=== PATIENT | male | born 2000 | race Caucasian/White ===

== ENCOUNTER 2022-02-26 13:29 | Emergency (ER) | payer OTHER, SELFPAY ==
[2022-02-26 13:36] VITALS: BP 143/105; PULSE 110; RESP 18; TEMP 36.6; O2SAT 99
--- NOTE | 2022-02-26 13:36 | DI.RAD.S_ITS ---
PROCEDURE: XR WRIST RT MIN 3V INDICATIONS: fall TECHNIQUE: Four views of the wrist were acquired. COMPARISON: None. FINDINGS: Bones: Minimally displaced transverse fracture of the distal ulnar shaft. Soft tissues: No suspicious soft tissue calcifications. IMPRESSION: Minimally displaced distal ulnar shaft fracture. This injury is sometimes associated with elbow dislocations. Correlate clinically and consider dedicated elbow views if necessary. Dictated by: Lavell Tafoya M.D. on 02/26/2022 at 14:05 Approved by: Lavell Tafoya M.D. on 02/26/2022 at 14:07
--- NOTE | 2022-02-26 14:00 | ED.GENADULT ---
HPI - General Adult General Chief complaint: Extremity Injury, Upper Stated complaint: tripped at work and might've broken arm Time Seen by Provider: 02/26/22 13:52 Source: patient Mode of arrival: Ambulatory History of Present Illness HPI narrative: 21-year-old left-hand dominant male here with evaluation of a right forearm/wrist injury. He states that shortly prior to arrival he was at work where he tripped and landed forward and landed on his left wrist. Has pain on the outside of his wrist/forearm. No other injuries from the event. No shoulder or elbow discomfort. No interventions prior to arrival. Related Data Home Medications Medication Instructions Recorded Confirmed No Known Home Medications 02/26/22 02/26/22 Allergies Allergy/AdvReac Type Severity Reaction Status Date / Time No Known Drug Allergies Allergy Verified 02/26/22 13:40 Review of Systems Constitutional Constitutional: Reports system reviewed and no additional complaints, except as documented Musculoskeletal Musculoskeletal: Reports system reviewed and no additional complaints, except as documented Integumentary/Breasts Skin/Breast: Reports system reviewed and no additional complaints, except as documented Neurologic Neurologic: Reports system reviewed and no additional complaints, except as documented Hematologic/Lymphatic On Anticoagulants: No Patient History Medical History Healthy adult Social History Smoking Status: Never smoker Smoking Status: Never smoker alcohol intake frequency: a few times a month Substance Use Type: marijuana Exam Initial Vital Signs Initial Vital Signs: Vital Signs Temperature 98 F 02/26/22 13:36 Pulse Rate 110 H 02/26/22 13:36 Respiratory Rate 18 02/26/22 13:36 Blood Pressure 143/105 H 02/26/22 13:36 Pulse Oximetry 99 02/26/22 13:36 Oxygen Delivery Method 02/26/22 13:36 Const General: cooperative and comfortable HENMT Head: normal to inspection Cardio Pulses: radial pulses present on the right Skin General: no rashes or lesions noted Neuro Sensory Exam: no sensory deficits noted Extrem Other: Right shoulder and right elbow unremarkable. Tenderness along the distal ulna on the right just proximal to the ulnar styloid. His hand and fingers on the right are unremarkable. Psych Appearance: grossly normal and well kempt Procedures Orthopedic Splinting/Casting Injury #1: Side: right Upper Extremity Injury Location: forearm Upper Extremity Immobilizer: sugar tong splint Other Orthopedic Equipment: other (Sling) Post splinting neuro exam: intact Post splinting vascular exam: intact Placed by: Nursing Course Orders Ordered: ED Orders 02/26/22 13:36 XR wrist RT min 3V Stat 02/26/22 14:13 XR elbow RT min 3V Stat Vital Signs Vital signs: Vital Signs - 8 hr 02/26/22 13:36 Temperature 98 F Pulse Rate 110 H Respiratory Rate 18 Blood Pressure 143/105 H Pulse Oximetry 99 Oxygen Delivery Method Room Air Medical Decision Making Imaging Data Extremity x-ray #1: Radiologist's Impression: [address] [address] XRay Report Signed Patient: Jake Acevedo MR#: [id number] : 2000 Acct:[id number] Age/Sex: 21 / M Date of Service: 02/26/22 Loc: ED Accession Number: [id number] ?? Procedure: XR wrist RT min 3V Ordering Provider: Prosper Ivey D.O. PROCEDURE:? XR WRIST RT MIN 3V ? INDICATIONS: fall ? TECHNIQUE:? Four views of the wrist were acquired.? ? COMPARISON:? None. ? FINDINGS:? ? Bones:? Minimally displaced transverse fracture of the distal ulnar shaft. ? Soft tissues:? No suspicious soft tissue calcifications.? ? IMPRESSION:? Minimally displaced distal ulnar shaft fracture.? This injury is sometimes associated with elbow dislocations.? Correlate clinically and consider dedicated elbow views if necessary. ? ? Dictated by: Lavell Tafoya M.D. on 02/26/2022 at 14:05 ? ? Approved by: Lavell Tafoya M.D. on 02/26/2022 at 14:07 Extremity x-ray #2: Radiologist's Impression: [address] [address] XRay Report Signed Patient: Jake Acevedo MR#: [id number] : 2000 Acct:[id number] Age/Sex: 21 / M Date of Service: 02/26/22 Loc: ED Accession Number: [id number] ?? Procedure: XR elbow RT min 3V Ordering Provider: Prosper Ivey D.O. PROCEDURE:? XR ELBOW RT MIN 3V ? INDICATIONS:? distal ulna fx eval for monteggia fx ? TECHNIQUE:? 3 views of the elbow were acquired.? ? COMPARISON:? None. ? FINDINGS:? ? Bones:? Radiocapitellar alignment is maintained.? No displaced fracture is identified. ? Soft tissues:? No elbow joint effusion.? No suspicious soft tissue calcifications.? ? ? IMPRESSION:? No acute radiographic abnormality.? If there is high concern for occult injury, consider repeat radiography or cross-sectional imaging. ? ? Dictated by: Lavell Tafoya M.D. on 02/26/2022 at 14:38 ? ? Approved by: Lavell Tafoya M.D. on 02/26/2022 at 14:39? MDM Narrative Medical decision making narrative: Patient has an isolated distal ulna fracture that is minimally displaced. He is neurologically intact. Was placed in a splint. Will have him follow-up with orthopedics for casting. He was given return precautions. He expressed understanding and agreement. Discharge Plan Departure Patient Disposition: Home Clinical Impression: Fracture of distal end of ulna Instructions: Forearm Fracture, How to Take Care of Your Splint Activity Restrictions/Additional Instructions: The splint needs to stay on needs to stay clean and stay dry. Please contact the orthopedic doctors at the number provided below his you will need follow-up with them. Use the sling for your comfort. Return to the emergency department for any new symptoms. Prescriptions: No Action No Known Home Medications Referrals: Miscellaneous,MD Prema [Primary Care Provider] - Sammy Tate MD [Physician] -
--- NOTE | 2022-02-26 14:13 | DI.RAD.S_ITS ---
PROCEDURE: XR ELBOW RT MIN 3V INDICATIONS: distal ulna fx eval for monteggia fx TECHNIQUE: 3 views of the elbow were acquired. COMPARISON: None. FINDINGS: Bones: Radiocapitellar alignment is maintained. No displaced fracture is identified. Soft tissues: No elbow joint effusion. No suspicious soft tissue calcifications. IMPRESSION: No acute radiographic abnormality. If there is high concern for occult injury, consider repeat radiography or cross-sectional imaging. Dictated by: Lavell Tafoya M.D. on 02/26/2022 at 14:38 Approved by: Lavell Tafoya M.D. on 02/26/2022 at 14:39
[2022-02-26 15:49] VITALS: BP 145/81; PULSE 98; O2SAT 97
== END 2022-02-26 15:51 | disposition home or self-care (01) ==
PROVIDERS: Emergency Provider Emergency Medicine
DX: S52.601A Unspecified fracture of lower end of right ulna, initial encounter for closed fracture (principal); W01.0XXA Fall on same level from slipping, tripping and stumbling without subsequent striking against object, initial encounter; Y99.0 Civilian activity done for income or pay
CPT/HCPCS: 29125; 73080; 73110; 99282; 99283